=== PATIENT | female | born 1965 | race Caucasian/White ===

== ENCOUNTER → 2019-01-09 15:18 | Outpatient (CLI) | payer SELFPAY ==
--- NOTE | 2019-01-09 15:21 | RAD_ITS ---
STUDY: X-RAY CHEST REASON FOR EXAM: Female, 53 years old. Preemployment. TECHNIQUE: PA and lateral views of the chest. COMPARISON: None. FINDINGS: The lungs are clear and expanded. There is no demonstrated pleural abnormality. Normal size heart. Normal mediastinum and jaren. Normal visualized pulmonary arteries. Normal visualized aortic arch and descending thoracic aorta. Normal visualized thoracic spine. Normal visualized ribs, clavicles, and shoulders. There is no demonstrated abnormality of the visualized soft tissue structures of the upper abdomen. RAD/Chest 1 View IMPRESSION: Normal x-ray examination of the chest. Electronically Signed: Nadia Spears MD at 3:03 EST , Service support ,
== END ==
LOC: HPRAD 15:20
PROVIDERS: Referring Provider Physician Assistant; Visit Provider Physician Assistant
DX: Z02.1 Encounter for pre-employment examination (principal)
CPT/HCPCS: 71045